=== PATIENT | male | born 1960 | race Two or more races ===

== ENCOUNTER 2025-01-07 10:00 | Inpatient (IN) | payer OTHER ==
[~2025-01-07] VITALS: Ht 160 cm; Wt 68.0 kg
[2025-01-07] MEDS ORDERED: FENOFIBRATE50 MG (12:52)
[2025-01-07 13:04] VITALS: BP 149/78
[2025-01-13 12:23] LABS: RH POSITIVE
[2025-01-31] MEDS ORDERED: LIDOCAINE HCL 1%/EPINEPHRINE 20ML VIAL IJ ONE (09:00)
[2025-01-31] MEDS ORDERED: CEFTRIAXONE SODIUM 2,000 MG VIAL IV ONE (09:00)
[2025-01-31] MEDS ORDERED: BUPIVACAINE HCL 30 ML VIAL IJ ONE (09:00)
[2025-01-31] MEDS ORDERED: METRONIDAZOLE/SODIUM CHLORIDE 500 MG/100 ML PIGGYBACK IV ONE (09:00)
[2025-01-31] MEDS ORDERED: ONDANSETRON HCL 2 MG/ML VIAL IV PRN (11:30)
[2025-01-31] MEDS ORDERED: RINGERS SOLUTION,LACTATED 1,000 ML IV SCH (11:30)
[2025-01-31] MEDS ORDERED: MORPHINE SULFATE 4 MG/ML VIAL IV PRN (11:30)
[2025-01-31] MEDS ORDERED: ACETAMINOPHEN 500 MG GEL..CAP PO SCH (12:00)
[2025-01-31] MEDS ORDERED: OxyCODONE HCL 5 MG TABLET (ROXICODONE) PO PRN (12:00)
[2025-01-31] MEDS ORDERED: ENALAPRILAT DIHYDRATE 1.25 MG/ML VIAL IV PRN (12:00)
[2025-01-31] MEDS ORDERED: MORPHINE SULFATE 4 MG/ML VIAL IV ONE ×2 (12:15→13:15)
[2025-01-31] MEDS ORDERED: SUGAMMADEX SODIUM 200 MG/2 ML VIAL IV ONE (12:15)
[2025-01-31] MEDS ORDERED: SIMETHICONE 125 MG CAPSULE PO SCH (13:00)
[2025-01-31 14:16] LABS: HEMATOCRIT 32.7 % (39.0-48.0); MEAN CELL VOLUME 92.1 fL (80.0-100.00); MEAN CORPUSCULAR HEMOGLOBIN 30.9 pg (27.00-32.0); MEAN CORPUSCULAR HGB CONC 33.6 g/dl (32.0-36.0); PLATELET COUNT 297 K/uL (150-450); RED BLOOD COUNT 3.54 M/uL (4.00-6.00); RED CELL DISTRIBUTION WIDTH 14.1 % (11.5-14.5)
[2025-01-31 15:35] LABS: ALBUMIN 3.7 gm/dL (3.4-5.0); CALCIUM 8.8 mg/dL (8.5-10.1); CREATININE SERUM 1.15 mg/dL (0.70-1.30); GFR 63.82; MAGNESIUM 1.8 mg/dL (1.8-2.4); PHOSPHOROUS 4.3 mg/dL (2.5-4.9); POTASSIUM 3.83 mEq/L (3.5-5.1)
[2025-01-31 16:18] VITALS: BP 158/77; O2SAT 97
[2025-01-31] MEDS ORDERED: POLYETHYLENE GLYCOL 3350 17 GM BLIST.PACK PO SCH (17:00)
[2025-01-31] MEDS ORDERED: FAMOTIDINE/PF 20 MG/2 ML VIAL IV PUSH SCH (21:00)
[2025-02-01] VITALS: BP 147/73; O2SAT 97
[2025-02-01 06:44] LABS: HEMOGLOBIN 11.6 g/dL (13-16.00); MEAN CELL VOLUME 92.1 fL (80.0-100.00); MEAN CORPUSCULAR HEMOGLOBIN 31.5 pg (27.00-32.0); MEAN CORPUSCULAR HGB CONC 34.2 g/dl (32.0-36.0); PLATELET COUNT 286 K/uL (150-450); RED BLOOD COUNT 3.69 M/uL (4.00-6.00); RED CELL DISTRIBUTION WIDTH 14.2 % (11.5-14.5)
[2025-02-01 07:23] LABS: ALBUMIN 3.6 gm/dL (3.4-5.0); CALCIUM 8.6 mg/dL (8.5-10.1); CREATININE SERUM 0.96 mg/dL (0.70-1.30); GFR 78.61; PHOSPHOROUS 3.4 mg/dL (2.5-4.9); POTASSIUM 4.05 mEq/L (3.5-5.1)
[2025-02-01 08:45] VITALS: BP 160/79; O2SAT 95
[2025-02-01] MEDS ORDERED: MAGNESIUM CHLORIDE 70 MG TABLET.DR PO SCH (09:00)
[2025-02-01] MEDS ORDERED: LACTOBACILLUS ACIDOPHILUS 1 CAP CAP PO SCH (09:00)
[2025-02-01] MEDS ORDERED: FAMOtidine 20 MG TABLET PO SCH (09:00)
[2025-02-01] MEDS ORDERED: DEXTROSE 5 %-0.45 % SOD CHLORD 1,000 ML IV SCH (14:45)
[2025-02-01 16:00] VITALS: BP 159/79; O2SAT 96
[2025-02-01] MEDS ORDERED: ENOXAPARIN SODIUM 40 MG/0.4 ML SYRINGE SUBCUTANEO SCH (17:00)
[2025-02-02 00:45] VITALS: BP 139/82; O2SAT 99
[2025-02-02 06:49] LABS: HEMATOCRIT 35.7 % (39.0-48.0); HEMOGLOBIN 12.3 g/dL (13-16.00); MEAN CELL VOLUME 90.7 fL (80.0-100.00); MEAN CORPUSCULAR HEMOGLOBIN 31.3 pg (27.00-32.0); MEAN CORPUSCULAR HGB CONC 34.5 g/dl (32.0-36.0); PLATELET COUNT 325 K/uL (150-450); RED BLOOD COUNT 3.93 M/uL (4.00-6.00); RED CELL DISTRIBUTION WIDTH 14.3 % (11.5-14.5)
[2025-02-02 07:34] LABS: ALBUMIN 3.6 gm/dL (3.4-5.0); CREATININE SERUM 0.98 mg/dL (0.70-1.30); GFR 76.76; MAGNESIUM 2.3 mg/dL (1.8-2.4); PHOSPHOROUS 2.2 mg/dL (2.5-4.9); POTASSIUM 4.37 mEq/L (3.5-5.1)
[2025-02-02 08:41] VITALS: BP 146/82; O2SAT 98
[2025-02-02] MEDS ORDERED: POTASSIUM PHOS,M-BASIC-D-BASIC 15 MM in 0.9 % SODIUM CHLORIDE 250 ML IV ONE ×2 (09:00→12:00)
[2025-02-02 16:17] VITALS: BP 177/83; O2SAT 97
[2025-02-02] MEDS ORDERED: MORPHINE SULFATE 4 MG/ML CARTRIDGE IV STA (16:30)
[2025-02-02 19:02] VITALS: BP 150/90; O2SAT 98
[2025-02-03 00:36] VITALS: BP 138/71; O2SAT 98
[2025-02-03 06:18] LABS: HEMATOCRIT 30.7 % (39.0-48.0); HEMOGLOBIN 10.6 g/dL (13-16.00); MEAN CELL VOLUME 91.8 fL (80.0-100.00); MEAN CORPUSCULAR HEMOGLOBIN 31.6 pg (27.00-32.0); MEAN CORPUSCULAR HGB CONC 34.4 g/dl (32.0-36.0); PLATELET COUNT 274 K/uL (150-450); RED BLOOD COUNT 3.35 M/uL (4.00-6.00); RED CELL DISTRIBUTION WIDTH 14.1 % (11.5-14.5)
[2025-02-03 06:35] LABS: ALBUMIN 3.2 gm/dL (3.4-5.0); CALCIUM 8.5 mg/dL (8.5-10.1); CREATININE SERUM 0.95 mg/dL (0.70-1.30); GFR 79.56; PHOSPHOROUS 2.4 mg/dL (2.5-4.9); POTASSIUM 4.22 mEq/L (3.5-5.1)
[2025-02-03 08:39] VITALS: BP 147/71; O2SAT 98
[2025-02-03 16:00] VITALS: BP 136/70; O2SAT 98
[2025-02-03] MEDS ORDERED: POTASSIUM PHOS,M-BASIC-D-BASIC 9 MM in 0.9 % SODIUM CHLORIDE 250 ML IV ONE (20:00)
[2025-02-03] MEDS ORDERED: NAPH,MB-DB/K PH,MBDB 1 PKT PACKET PO SCH (21:00)
[2025-02-03] MEDS ORDERED: IRON FUM,PS/FOLIC ACID/VITC/B3 1 CAP CAPSULE PO SCH (21:00)
[2025-02-03 23:57] VITALS: BP 176/79; O2SAT 99
[2025-02-04 01:06] VITALS: BP 137/69; O2SAT 095
[2025-02-04] MEDS ORDERED: DIATRIZOATE MEGLUMINE, SODIUM 30 ML BOTTLE ONE (04:11)
[2025-02-04] MEDS ORDERED: DIATRIZOATE MEGLUMINE, SODIUM 30 ML BOTTLE PO ONE (05:00)
[2025-02-04 08:24] VITALS: BP 110/64; O2SAT 99
[2025-02-04 16:00] VITALS: BP 122/64; O2SAT 98
[2025-02-04 23:08] VITALS: BP 140/74; O2SAT 99
[2025-02-05 07:52] LABS: CALCIUM 8.4 mg/dL (8.5-10.1); CREATININE SERUM 0.86 mg/dL (0.70-1.30); GFR 89.25; MAGNESIUM 1.8 mg/dL (1.8-2.4); PHOSPHOROUS 3.6 mg/dL (2.5-4.9); POTASSIUM 4.19 mEq/L (3.5-5.1)
[2025-02-05 07:57] VITALS: BP 135/72; O2SAT 100
[2025-02-05] MEDS ORDERED: POLYETHYLENE GLYCOL 3350 17 GM BLIST.PACK PO SCH (09:00)
[2025-02-05 09:45] LABS: HEMATOCRIT 29.3 % (39.0-48.0); MEAN CORPUSCULAR HEMOGLOBIN 31.3 pg (27.00-32.0); PLATELET COUNT 268 K/uL (150-450); RED BLOOD COUNT 3.19 M/uL (4.00-6.00); RED CELL DISTRIBUTION WIDTH 13.9 % (11.5-14.5)
[2025-02-05 16:28] VITALS: BP 162/80; O2SAT 99
[2025-02-05] MEDS ORDERED: OxyCODONE HCL 5 MG TABLET (ROXICODONE) PO PRN (18:12)
[2025-02-05] MEDS ORDERED: MAGNESIUM SULFATE 50% 1,000 MG/2 ML VIAL IV ONE (18:15)
[2025-02-05] MEDS ORDERED: POTASSIUM PHOS,M-BASIC-D-BASIC 15 MM in 0.9 % SODIUM CHLORIDE 250 ML IV ONE (18:15)
[2025-02-06 00:13] VITALS: BP 152/76; O2SAT 99
[2025-02-06 07:57] VITALS: BP 149/73; O2SAT 100
[2025-02-06] MEDS ORDERED: ACETAMINOPHEN 500 MG GEL..CAP PO PRN (13:03)
[2025-02-06 16:37] VITALS: BP 160/80; O2SAT 100
[2025-02-07 00:34] VITALS: BP 131/67; O2SAT 100
[2025-02-07 07:03] LABS: HEMATOCRIT 27.4 % (39.0-48.0); HEMOGLOBIN 9.7 g/dL (13-16.00); MEAN CELL VOLUME 89.6 fL (80.0-100.00); MEAN CORPUSCULAR HEMOGLOBIN 31.8 pg (27.00-32.0); MEAN CORPUSCULAR HGB CONC 35.5 g/dl (32.0-36.0); PLATELET COUNT 297 K/uL (150-450); RED BLOOD COUNT 3.06 M/uL (4.00-6.00)
[2025-02-07 07:33] LABS: CALCIUM 8.7 mg/dL (8.5-10.1); CREATININE SERUM 0.94 mg/dL (0.70-1.30); GFR 80.54; POTASSIUM 4.33 mEq/L (3.5-5.1)
[2025-02-07 08:00] VITALS: BP 152/79
[2025-02-07 16:24] VITALS: BP 146/81; O2SAT 100
[2025-02-08 00:27] VITALS: BP 128/53; O2SAT 99
[2025-02-08 09:46] VITALS: BP 135/82; O2SAT 100
== END 2025-02-08 13:26 | disposition home or self-care (01) | DRG 330 ==
LOC: SURG 01-14 07:00 → O/R 01-31 05:45 → SURH 01-31 05:45 → O/R 01-31 10:41 → SURH 01-31 12:07
PROVIDERS: ADMIT Colon & Rectal Surgery; ATTEND Colon & Rectal Surgery
PROC: 07BB4ZZ Excision of Mesenteric Lymphatic, Percutaneous Endoscopic Approach (ICD-10-PCS; 2025-01-31)
PROC: 0DTG4ZZ Resection of Left Large Intestine, Percutaneous Endoscopic Approach (ICD-10-PCS; principal; 2025-01-31 07:00)
PROC: BW21ZZZ Computerized Tomography (CT Scan) of Abdomen and Pelvis (ICD-10-PCS; 2025-02-04)
PROC: 0D9K8ZZ Drainage of Ascending Colon, Via Natural or Artificial Opening Endoscopic (ICD-10-PCS; 2025-02-07)
PROC: 0D9L8ZZ Drainage of Transverse Colon, Via Natural or Artificial Opening Endoscopic (ICD-10-PCS; 2025-02-07)
PROC: 0D9N8ZZ Drainage of Sigmoid Colon, Via Natural or Artificial Opening Endoscopic (ICD-10-PCS; 2025-02-07)
PROC: 0D9P8ZZ Drainage of Rectum, Via Natural or Artificial Opening Endoscopic (ICD-10-PCS; 2025-02-07)
PROC: 0D9M8ZZ Drainage of Descending Colon, Via Natural or Artificial Opening Endoscopic (ICD-10-PCS; 2025-02-07)
DX: C18.6 Malignant neoplasm of descending colon (principal); K56.7 Ileus, unspecified; K91.89 Other postprocedural complications and disorders of digestive system; R59.0 Localized enlarged lymph nodes; K43.9 Ventral hernia without obstruction or gangrene; K59.81 Ogilvie syndrome; I77.89 Other specified disorders of arteries and arterioles